=== PATIENT | male | born 1980 | race African-American/Black ===

== ENCOUNTER 2017-02-25 15:15 | Emergency (ER) | payer MEDICAID, OTHER ==
[~2017-02-25] VITALS: Ht 195.6 cm; Wt 109.0 kg
[2017-02-25] MEDS ORDERED: LIDOCAINE HCL 1% 20ML VIAL (Pyxis) INJ INFIL ONE (19:45)
[2017-02-25] MEDS ORDERED: TETANUS, DIPHTHERIA, PERTUSSIS VAC/PF 0.5ML (>7YR OLD) IM ONE (19:45)
[2017-02-26] MEDS ORDERED: ACETAMINOPHEN 325MG TABLET PO ONE (00:15)
[2017-02-26] MEDS ORDERED: BACITRACIN ZINC 15GM TUBE TOP ONE (00:15)
[2017-02-26 01:30] VITALS: BP 125/79
== END 2017-02-26 01:30 | disposition home or self-care (01) ==
LOC: ER 18:54
DX: S51.812A Laceration without foreign body of left forearm, initial encounter (principal); S61.412A Laceration without foreign body of left hand, initial encounter; S81.012A Laceration without foreign body, left knee, initial encounter; S93.401A Sprain of unspecified ligament of right ankle, initial encounter; Z88.6 Allergy status to analgesic agent; W26.0XXA Contact with knife, initial encounter; Y93.89 Activity, other specified; Y99.8 Other external cause status; Y92.89 Other specified places as the place of occurrence of the external cause
CPT/HCPCS: 12007; 73610; 90471; 90715; 99284; J3490; X7700; Z7610